=== PATIENT | female | born 1965 | race Caucasian/White ===

== ENCOUNTER 2024-06-03 13:52 | Outpatient (CLI) | payer MEDICAID, SELFPAY | END 2024-06-03 23:59 | disposition home or self-care (01) | LOC: RAD 13:53 | PROVIDERS: PCP Emergency Medicine; Visit Provider Nurse Practitioner Family | DX: G93.9 Disorder of brain, unspecified (principal); F41.9 Anxiety disorder, unspecified ==

== ENCOUNTER 2024-06-14 12:30 | Outpatient (CLI) | payer MEDICAID, SELFPAY ==
--- NOTE | 2024-06-14 | MR_ITS ---
FINAL REPORT CLINICAL HISTORY: Tonsillar ectopia seen on MRI cervical spine COMPARISON: MRI cervical spine dated 05/11/2024 FINDINGS: Multi planar MR imaging was obtained through the brain without contrast. Again seen, on the sagittal images, is mild cerebellar tonsillar ectopia. There is no pointed configuration to suggest Chiari I malformation. Midline structures are otherwise intact. There is mild abnormal signal in the deep white matter. Most conspicuous focus is in the deep white matter in the right frontal lobe, on image 18 series 9. This is nonspecific and is probably related to chronic ischemia. On diffusion-weighted images there is no evidence of restricted diffusion. The visualized paranasal sinuses demonstrate normal signal voids. The seventh and eighth nerve root complexes are intact. 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 Chronic microvascular ischemia. Reviewed, Interpreted and Dictated by Danny Sorensen MD Transcribed by Cece Velasco Authenticated and [facility]
== END 2024-06-14 23:59 | disposition home or self-care (01) ==
LOC: RAD 12:31
PROVIDERS: PCP Emergency Medicine; Visit Provider Nurse Practitioner Family
DX: G93.9 Disorder of brain, unspecified (principal)
CPT/HCPCS: 70551